=== PATIENT | male | born 1990 | race Caucasian/White ===

== ENCOUNTER 2024-04-23 18:13 | Emergency (ER) | payer SELFPAY ==
[2024-04-23] MEDS: Diphtheria,Pertussis(Acell),Tetanus Vaccine 0.5 ML Syringe IM ONE (19:30)
[2024-04-23] MEDS: Cephalexin 500 MG Cap PO ONE (19:30)
== END 2024-04-23 19:47 | disposition home or self-care (01) ==
LOC: MW.ED 18:13
DX: S60.451A Superficial foreign body of left index finger, initial encounter (principal); Z23 Encounter for immunization; F17.210 Nicotine dependence, cigarettes, uncomplicated; Z88.2 Allergy status to sulfonamides; Z91.013 Allergy to seafood; Z79.899 Other long term (current) drug therapy; W45.8XXA Other foreign body or object entering through skin, initial encounter; Y99.0 Civilian activity done for income or pay; Y92.89 Other specified places as the place of occurrence of the external cause
CPT/HCPCS: 10120; 73140; 90471; 90715; 99283; A9270